=== PATIENT | male | born 1990 | race Caucasian/White ===

== ENCOUNTER 2018-10-05 14:26 | Emergency (ER) | payer BC, SELFPAY ==
[2018-10-05 14:28] VITALS: BP 149/93; PULSE 79; RESP 14; TEMP 36.6; O2SAT 98; BMI 20.2
--- NOTE | 2018-10-05 14:58 | ED.ABDPAIN ---
HPI - Abdominal Pain <Krupa Blankenship PA-C - Last Filed: 10/05/18 20:04> General Chief Complaint: Abdominal Pain Stated Complaint: Rt lower abd pain Time Seen by Provider: 10/05/18 14:43 Source: patient Mode of arrival: ambulatory Limitations: no limitations History of Present Illness HPI narrative: This 28-year-old male comes to ED secondary to recurrent right side pain. He indicates this is in the side just above the hip. He states that he had similar pain to this a month ago, stopped on its own within a week after he stopped alcohol. He also notes that prior to the initial episode of pain, he had taken an herbal supplement, kava, at a fairly high dose which he discontinued. He was seen at another local walk-in clinic or urgent care and was told he had some elevated liver function tests, no other acute findings. He states that pain started again yesterday while he was working (does not have a physical job). He travels for work but denies any trauma, lifting luggage, etc. He states that he continued working and pain seem better in the afternoon, did keep him up last night for some time but he does not think pain had gotten acutely worse. He states he thinks that maybe pain is worse after drinking alcohol, no other exacerbating or alleviating features such as food or motion. He states he has not had any nausea or vomiting associated with pain and has been eating normally. He has been having normal regular bowel movements though he did try magnesium citrate yesterday in case of constipation causing this, states it caused diarrhea but no change in his pain. He has not had any fever, chills, sweats. He has not had any urinary symptoms such as hematuria, dysuria or frequency. He denies any chest pain, dyspnea, or magda abdominal pain. He denies any pain in his extremities or swelling. In general he has been going about his usual activities including running, but has not done this in the last few days secondary to travel. He states pain is not acutely changed today but he was concerned and PCP sent him here in case of possible appendicitis. Related Data Allergies Allergy/AdvReac Type Severity Reaction Status Date / Time No Known Drug Allergies Allergy Verified 10/05/18 14:32 Review of Systems <Krupa Blankenship PA-C - Last Filed: 10/05/18 20:04> Review of Systems ROS Unobtainable: All systems reviewed & are unremarkable except as noted in HPI and below PFSH <Krupa Blankenship PA-C - Last Filed: 10/05/18 20:04> Medical History (Updated 10/05/18 @ 16:41 by Krupa Blankenship PA-C) Healthy adult male (Chronic) Surgical History (Updated 10/05/18 @ 15:38 by Krupa Blankenship PA-C) Status post surgical removal of ganglion cyst (Resolved) Social History (Updated 10/05/18 @ 15:38 by Krupa Blankenship PA-C) Smoking Status: Former smoker Social History (Updated 10/05/18 @ 15:38 by Krupa Blankenship PA-C) Smoking Status: Former smoker Comment: ETOH 0-6 per day Exam <Krupa Blankenship PA-C - Last Filed: 10/05/18 20:04> Narrative Exam Narrative: GENERAL APPEARANCE: Patient sitting comfortably, in no distress. HEENT: PERRL, EOMI, no scleral icterus NECK: Supple LUNGS: Clear to auscultation bilaterally. HEART: Rate and rhythm regular, normal S1 and S2, no S3 or S4. ABDOMEN: Soft, nondistended, bowel sounds present x 4 quadrants, no masses palpable. Very minimal tenderness at the right mid and lateral hepatic border. Liver border is palpable approximately 2 cm be on costal margin, no splenomegaly. No CVAT EXTREMITIES: No edema DERMATOLOGIC: No jaundice or exanthem NEUROLOGIC: Alert and oriented with normal speech and coordination Initial Vital Signs Initial Vital Signs: Vital Signs Temperature 97.8 F 10/05/18 14:28 Pulse Rate 79 10/05/18 14:28 Respiratory Rate 14 10/05/18 14:28 Blood Pressure 149/93 H 10/05/18 14:28 Pulse Oximetry 98 10/05/18 14:28 <Erin Mccoy MD - Last Filed: 10/05/18 20:11> Initial Vital Signs Initial Vital Signs: Vital Signs Temperature 97.8 F 10/05/18 14:28 Pulse Rate 79 10/05/18 14:28 Respiratory Rate 14 10/05/18 14:28 Blood Pressure 149/93 H 10/05/18 14:28 Pulse Oximetry 98 10/05/18 14:28 Course <Krupa Blankenship PA-C - Last Filed: 10/05/18 20:04> Orders Ordered: ED Orders 10/05/18 15:34 Complete Blood Count AUTO DIFF Stat Comprehensive Metabolic Panel Stat Gamma Glutamyl Transpeptidase Stat Lipase Stat Vital Signs - 8 hr 10/05/18 14:28 10/05/18 16:46 Temperature 97.8 F Pulse Rate 79 52 L Respiratory Rate 14 16 Blood Pressure 149/93 H 128/84 Pulse Oximetry 98 97 <Erin Mccoy MD - Last Filed: 10/05/18 20:11> Orders Ordered: ED Orders 10/05/18 15:34 Complete Blood Count AUTO DIFF Stat Comprehensive Metabolic Panel Stat Gamma Glutamyl Transpeptidase Stat Lipase Stat Vital Signs - 8 hr 10/05/18 14:28 10/05/18 16:46 Temperature 97.8 F Pulse Rate 79 52 L Respiratory Rate 14 16 Blood Pressure 149/93 H 128/84 Pulse Oximetry 98 97 MDM - Abdominal Pain <Krupa Blankenship PA-C - Last Filed: 10/05/18 20:04> Lab Data Attestation: I reviewed the patient's lab results. Result diagrams: 10/05/18 15:34 10/05/18 15:34 Lab Results 10/05/18 10/05/18 10/05/18 Range/Units 15:34 15:34 15:34 WBC 6.6 (4.5-11.0) X10^3/uL RBC 4.44 L (4.5-5.9) X10^6/uL Hgb 15.2 (13.5-17.5) g/dL Hct 44.2 (41-53) % MCV 99.7 (80-100) fL MCH 34.3 H (26-34) PG MCHC 34.5 (30-36) % RDW 12.2 (11.6-14.8) % Plt Count 231 (150-400) X10^3/uL Neut % (Auto) 68.7 (50-75) % Lymph % (Auto) 20.0 L (25-40) % Dolores % (Auto) 9.5 (3-14) % Eos % (Auto) 1.3 L (2-4) % Baso % (Auto) 0.5 (0-2) % Neut # (Auto) 4500 (5887-6705) /uL Lymph # (Auto) 1300 (7304-3750) /uL Dolores # (Auto) 600 (0-900) /uL Eos # (Auto) 100 (0-450) /uL Baso # (Auto) 0 (0-100) /uL Sodium 138 (137-145) mmol/L Potassium 4.2 (3.4-5.1) mmol/L Chloride 102 (98-107) mmol/L Carbon Dioxide 27 (22-32) mmol/L BUN 13 (9-20) mg/dL Creatinine 0.80 (0.66-1.25) mg/dL Estimated GFR > 60.0 (>60) mL/min BUN/Creatinine Ratio 16.3 (6-22) Glucose 86 (70-100) mg/dL Calcium 9.7 (8.4-10.2) mg/dL Total Bilirubin 1.2 (0.2-1.3) mg/dL GGT 63 (15-73) U/L AST 32 (17-59) IU/L ALT 27 (21-72) IU/L Alkaline Phosphatase 81 (38-126) U/L Total Protein 7.8 (6.3-8.2) g/dL Albumin 4.8 (3.5-5.0) g/dL Globulin 3.0 (1.7-4.1) g/dL Albumin/Globulin Ratio 1.6 (1.0-2.8) Lipase 75 (23-300) U/L Point of care testing: Urine Dip Bedside Urine Glucose Negative Bedside Urine Bilirubin - Negative Bedside Urine Ketone - Negative Urine Specific [place] 1.015 Bedside Urine Occult Blood - Negative Bedside Urine pH 8.0 Bedside Urine Protein - Negative Bedside Urine Urobilinogen - Negative Bedside Urine Nitrite - Negative Bedside Urine Leukocytes - Negative Esterase <Erin Mccoy MD - Last Filed: 10/05/18 20:11> Lab Data Lab Results 10/05/18 10/05/18 10/05/18 Range/Units 15:34 15:34 15:34 WBC 6.6 (4.5-11.0) X10^3/uL RBC 4.44 L (4.5-5.9) X10^6/uL Hgb 15.2 (13.5-17.5) g/dL Hct 44.2 (41-53) % MCV 99.7 (80-100) fL MCH 34.3 H (26-34) PG MCHC 34.5 (30-36) % RDW 12.2 (11.6-14.8) % Plt Count 231 (150-400) X10^3/uL Neut % (Auto) 68.7 (50-75) % Lymph % (Auto) 20.0 L (25-40) % Dolores % (Auto) 9.5 (3-14) % Eos % (Auto) 1.3 L (2-4) % Baso % (Auto) 0.5 (0-2) % Neut # (Auto) 4500 (1988-2796) /uL Lymph # (Auto) 1300 (2965-6888) /uL Dolores # (Auto) 600 (0-900) /uL Eos # (Auto) 100 (0-450) /uL Baso # (Auto) 0 (0-100) /uL Sodium 138 (137-145) mmol/L Potassium 4.2 (3.4-5.1) mmol/L Chloride 102 (98-107) mmol/L Carbon Dioxide 27 (22-32) mmol/L BUN 13 (9-20) mg/dL Creatinine 0.80 (0.66-1.25) mg/dL Estimated GFR > 60.0 (>60) mL/min BUN/Creatinine Ratio 16.3 (6-22) Glucose 86 (70-100) mg/dL Calcium 9.7 (8.4-10.2) mg/dL Total Bilirubin 1.2 (0.2-1.3) mg/dL GGT 63 (15-73) U/L AST 32 (17-59) IU/L ALT 27 (21-72) IU/L Alkaline Phosphatase 81 (38-126) U/L Total Protein 7.8 (6.3-8.2) g/dL Albumin 4.8 (3.5-5.0) g/dL Globulin 3.0 (1.7-4.1) g/dL Albumin/Globulin Ratio 1.6 (1.0-2.8) Lipase 75 (23-300) U/L Point of care testing: Urine Dip Bedside Urine Glucose Negative Bedside Urine Bilirubin - Negative Bedside Urine Ketone - Negative Urine Specific [place] 1.015 Bedside Urine Occult Blood - Negative Bedside Urine pH 8.0 Bedside Urine Protein - Negative Bedside Urine Urobilinogen - Negative Bedside Urine Nitrite - Negative Bedside Urine Leukocytes - Negative Esterase Discharge Plan Departure Patient Disposition: Home Clinical Impression: Chronic right flank pain Discharge Date/Time: 10/05/18 16:51 Interventions: ED Discharge Assessment Last Done: 10/05/18 16:46 Instructions: DI for Abdominal Pain-Adult Activity Restrictions/Additional Instructions: There was not any acute problem found on your lab work today, and the source of your pain is not clear on exam. Your liver function tests were normal today, and that could be related to reducing your alcohol intake as you mention. This could be something musculoskeletal, however it may be helpful to do further testing as well such as an ultrasound. Please completely abstain from alcohol to see if that is helpful since you think there might be a correlation. Please start an [id number] anti-inflammatory pain medicines such as Aleve, 2 tablets every 12 hours, or ibuprofen (Motrin), 3-4 [id number]-[id number] tablets every 8 hours, both of which are equivalent to prescription dosing. You can add Tylenol in between as needed. Please be consistent with the medicine for a few days to see if it is helpful, and call your PCP to make a follow-up appointment. Please return here as we talked about if you have any acutely worsening pain or new symptoms such as vomiting or fever. Referrals: Ada Irvin DO [Non-Staff] -
[2018-10-05 15:42] LABS: Add Manual Diff / Slide Review NO; Basophils Absolute Auto 0 /uL (0-100); Basophils Percent Auto 0.5 % (0-2); Eosinophils Absolute Auto 100 /uL (0-450); Eosinophils Percent Auto 1.3 % (2-4); Hematocrit 44.2 % (41-53); Hemoglobin 15.2 g/dL (13.5-17.5); Lymphocytes Absolute Auto 1300 /uL (1100-4500); Mean Corpuscular HGB Conc 34.5 % (30-36); Mean Corpuscular Hemoglobin 34.3 PG (26-34); Mean Corpuscular Volume 99.7 fL (80-100); Monocytes Absolute Auto 600 /uL (0-900); Monocytes Percent Auto 9.5 % (3-14); Neutrophils Absolute Auto 4500 /uL (1500-7000); Neutrophils Percent Auto 68.7 % (50-75); Platelet Count 231 X10^3/uL (150-400); Red Blood Cell Count 4.44 X10^6/uL (4.5-5.9); Red Cell Distribution Width 12.2 % (11.6-14.8); White Blood Cell Count 6.6 X10^3/uL (4.5-11.0)
[2018-10-05 15:51] LABS: Alanine Aminotransferase 27 IU/L (21-72); Albumin 4.8 g/dL (3.5-5.0); Albumin Globulin Ratio 1.6 (1.0-2.8); Alkaline Phosphatase 81 U/L (38-126); Aspartate Aminotransferase 32 IU/L (17-59); BUN Creatinine Ratio 16.3 (6-22); Bilirubin Total 1.2 mg/dL (0.2-1.3); Blood Urea Nitrogen 13 mg/dL (9-20); Calcium 9.7 mg/dL (8.4-10.2); Carbon Dioxide 27 mmol/L (22-32); Chloride 102 mmol/L (98-107); Estimated Glomerular Filt Rate > 60.0 mL/min (>60); Glucose 86 mg/dL (70-100); HEMOLYSIS < 15 (0-50); Lipase 75 U/L (23-300); Potassium 4.2 mmol/L (3.4-5.1); Sodium 138 mmol/L (137-145); Total Protein 7.8 g/dL (6.3-8.2)
[2018-10-05 16:13] LABS: Gamma Glutamyl Transpeptidase 63 U/L (15-73)
[2018-10-05 16:46] VITALS: BP 128/84; PULSE 52; RESP 16; O2SAT 97
== END 2018-10-05 16:51 | disposition home or self-care (01) ==
PROVIDERS: Emergency Provider Internal Medicine
DX: R10.9 Unspecified abdominal pain (principal)
CPT/HCPCS: 36415; 80053; 81003; 82977; 83690; 85025; 99282; 99283

== ENCOUNTER 2018-10-31 15:41 | Emergency (ER) | payer BC, SELFPAY ==
[2018-10-31 15:43] VITALS: BP 140/90; PULSE 86; RESP 144; TEMP 36.9; O2SAT 100
--- NOTE | 2018-10-31 16:52 | DI.US.S_ITS ---
PROCEDURE: US SCROTUM INDICATIONS: TESTICULAR PAIN TECHNIQUE: Real-time scanning was performed of the scrotum and testicles, with image documentation. Color and pulse Doppler interrogation was performed of both testicles. COMPARISON: None. FINDINGS: Right: Testicle is normal in size at 4.7 x 2.3 x 3.3 cm, and homogenous in echotexture. Epididymis is normal in overall size and morphology. No hydrocele or varicoceles. Overlying scrotal skin is normal in thickness. Mild increased vascularity. Left: Testicle is normal in size at 4.5 x 1.9 x 3.3 cm, and homogeneous in echotexture. Epididymis is normal in overall size and morphology. No hydrocele. Mild varicocele. Overlying scrotal skin is normal in thickness. Mild increased vascularity. Doppler: Color and pulse Doppler demonstrate normal and symmetric arterial flow in both testicles. IMPRESSION: Mild increased vascularity bilaterally. Mild left varicocele. Dictated by: Valeria Rebolledo M.D. on 10/31/2018 at 18:40 Approved by: Valeria Rebolledo M.D. on 10/31/2018 at 18:44
[2018-10-31 19:14] VITALS: BP 147/79; PULSE 71; RESP 20; O2SAT 100
[2018-10-31 19:15] LABS: Urine Chlamydia NOT DETECTED; Urine N gonorrhoeae NOT DETECTED
[2018-10-31] MEDS: KETOROLAC 60 MG/2 ML VIAL IM (20:06)
--- NOTE | 2018-10-31 20:14 | ED.MALEGU ---
HPI - Male Genitourinary <FAINA Gonzalez-BC - Last Filed: 10/31/18 20:56> General Chief complaint: Urogenital-Male Stated complaint: groin pain Time Seen by Provider: 10/31/18 16:52 Source: patient Mode of arrival: ambulatory Limitations: no limitations History of Present Illness HPI Narrative: The patient is a 28-year-old former smoker male who denies any medical history with a chief complaint of groin pain x4 days. He states both of his testicles hurt, low-grade all the time. He denies any rectal pain or pressure. He denies any pain sitting down. He denies any alleviating or worsening factors. He denies any dysuria urgency or frequency. Denies any palpable masses. Denies any testicular swelling. He denies any drainage. He states that the pain does not radiate anywhere. Of note he states he had a normal abdomen pelvis CT at an outside facility on the 7th of this month. This was done at [facility]. He has not followed up with primary care provider for this. He is slightly concerned about gonorrhea and chlamydia. He denies any fevers nausea vomiting diarrhea or abdominal pain. Related Data Previous Rx's Medication Instructions Recorded ketorolac 10 mg PO TID PRN #14 tab 10/31/18 Allergies Allergy/AdvReac Type Severity Reaction Status Date / Time No Known Drug Allergies Allergy Verified 10/05/18 14:32 Review of Systems <FAINA Gonzalez-BC - Last Filed: 10/31/18 20:56> Review of Systems GENERAL: Denies chills, fatigue, malaise, fever, sweats. HEENT: Denies sinus pain, ear pain, sore throat, difficulty swallowing, dizziness. RESPIRATORY: Denies dyspnea, cough, wheezing, hemoptysis, sputum. CARDIOVASCULAR: Denies chest pain, palpitations, orthopnea, edema, GASTROINTESTINAL: Denies nausea, vomiting, abdominal pain, diarrhea, constipation, melena. : See HPI MUSCULOSKELETAL: denies weakness, joint pain, or bony pain SKIN: Denies rash, skin lesions, or other NEUROLOGIC: Denies weakness, headache, numbness, change in speech, confusion, seizures, incoordination. PSYCHIATRIC: No concerning psychosocial issues. 12 point review of systems is negative except for those stated above PFSH <SVEN Gonzalez - Last Filed: 10/31/18 20:56> Medical History Healthy adult male (Chronic) Surgical History (Updated 10/05/18 @ 15:38 by Krupa Blankenship PA-C) Status post surgical removal of ganglion cyst (Resolved) Social History Smoking Status: Former smoker Social History Smoking Status: Former smoker Exam <SVEN Gonzalez - Last Filed: 10/31/18 20:56> Narrative Exam Narrative: GENERAL: This is a well-nourished, well-developed patient, in no acute distress HEAD: Atraumatic. Normocephalic. No temporal or scalp tenderness. EYES: Pupils equal round and reactive. Extraocular motions intact. No scleral icterus. No injection or drainage. ENT: Nose without bleeding, purulent drainage or septal hematoma. Throat without erythema, tonsillar hypertrophy or exudate. Uvula midline. Airway patent. NECK: Trachea midline. No JVD or lymphadenopathy. Supple, nontender, no meningeal signs. CARDIOVASCULAR: Regular rate and rhythm without murmurs, gallops, or rubs. RESPIRATORY: Clear to auscultation. Breath sounds equal bilaterally. No wheezes, rales, or rhonchi. GASTROINTESTINAL: Abdomen soft, non-tender, nondistended. No hepato-splenomegaly, or palpable masses. No guarding. EXTREMITIES: No clubbing, cyanosis, or edema. No joint tenderness, effusion, or edema noted. BACK: Nontender without deformity or crepitance. No flank tenderness. NEURO: AOx3. SKIN: No rash or erythema. : Cremasteric reflex intact bilaterally. No penile lesions or discharge noted. No palpable hernias. Exam performed with Alonzo Rn as soc analyst negative phrens side Initial Vital Signs Initial Vital Signs: Vital Signs Temperature 98.5 F 10/31/18 15:43 Pulse Rate 86 10/31/18 15:43 Respiratory Rate 144 H 10/31/18 15:43 Blood Pressure 140/90 10/31/18 15:43 Pulse Oximetry 100 07/01/19 15:43 <DO Selin Aguilar Last Filed: 10/31/18 22:32> Initial Vital Signs Initial Vital Signs: Vital Signs Temperature 98.5 F 10/31/18 15:43 Pulse Rate 86 10/31/18 15:43 Respiratory Rate 144 H 10/31/18 15:43 Blood Pressure 140/90 10/31/18 15:43 Pulse Oximetry 100 10/31/18 15:43 Course <SVEN Gonzalez - Last Filed: 10/31/18 20:56> Orders Ordered: ED Orders 10/31/18 16:52 US scrotum Stat 10/31/18 17:25 Urine Chlamydia Gonorrhea PCR Stat Discontinued Medications Ketorolac Tromethamine (Toradol) 60 mg IM NOW ONE Stop: 10/31/18 19:56 Last Admin: 10/31/18 20:06 Dose: 60 mg Vital Signs - 8 hr 10/31/18 15:43 10/31/18 19:14 10/31/18 20:32 Temperature 98.5 F Pulse Rate 86 71 60 Respiratory Rate 144 H 20 18 Blood Pressure 140/90 119/82 Blood Pressure [Left Arm] 147/79 H Pulse Oximetry 100 100 100 <DO Selin Aguilar Last Filed: 10/31/18 22:32> Orders Ordered: ED Orders 10/31/18 16:52 US scrotum Stat 10/31/18 17:25 Urine Chlamydia Gonorrhea PCR Stat Discontinued Medications Ketorolac Tromethamine (Toradol) 60 mg IM NOW ONE Stop: 10/31/18 19:56 Last Admin: 10/31/18 20:06 Dose: 60 mg Vital Signs - 8 hr 10/31/18 15:43 10/31/18 19:14 10/31/18 20:32 Temperature 98.5 F Pulse Rate 86 71 60 Respiratory Rate 144 H 20 18 Blood Pressure 140/90 119/82 Blood Pressure [Left Arm] 147/79 H Pulse Oximetry 100 100 100 MDM - Male Genitourinary <SVEN Gonzalez - Last Filed: 10/31/18 20:56> Lab Data Lab Results 10/31/18 Range/Units 17:25 Ur Chlamydia DNA (PCR) Not detected N gonorrhoeae DNA (PCR) Not detected Urine Dip Bedside Urine Glucose Negative Bedside Urine Bilirubin - Negative Bedside Urine Ketone ++ 40 Urine Specific [place] 1.015 Bedside Urine Occult Blood - Negative Bedside Urine pH 8.0 Bedside Urine Protein - Negative Bedside Urine Urobilinogen +/- 1mg Bedside Urine Nitrite - Negative Bedside Urine Leukocytes - Negative Esterase Imaging Data Scrotal ultrasound: Radiologist's impression: [address] [address] Ultrasound Report Signed Patient: Flakito Bruno EMR#: [id number] : 1990Acct:[id number] Age/Sex: 28 / MDate of Service: 10/31/18 Loc: ED Accession Number: [id number] Procedure: US scrotum Ordering Provider: Yuli Jesus PROCEDURE: US SCROTUM INDICATIONS: TESTICULAR PAIN TECHNIQUE: Real-time scanning was performed of the scrotum and testicles, with image documentation. Color and pulse Doppler interrogation was performed of both testicles. COMPARISON: None. FINDINGS: Right: Testicle is normal in size at 4.7 x 2.3 x 3.3 cm, and homogenous in echotexture. Epididymis is normal in overall size and morphology. No hydrocele or varicoceles. Overlying scrotal skin is normal in thickness. Mild increased vascularity. Left: Testicle is normal in size at 4.5 x 1.9 x 3.3 cm, and homogeneous in echotexture. Epididymis is normal in overall size and morphology. No hydrocele. Mild varicocele. Overlying scrotal skin is normal in thickness. Mild increased vascularity. Doppler: Color and pulse Doppler demonstrate normal and symmetric arterial flow in both testicles. IMPRESSION: Mild increased vascularity bilaterally. Mild left varicocele. Dictated by: Valeria Rebolledo M.D. on 10/31/2018 at 18:40 Approved by: Valeria Rebolledo M.D. on 10/31/2018 at 18:4 MDM Narrative Medical decision making narrative: The patient is a 28-year-old male who presents with testicular pain. He has no red flags on exam, bilateral cremasteric reflexes. His ultrasound shows no acute findings other than slightly increased vascularity. We discussed at length trialing anti-inflammatories. He has no evidence of gonorrhea chlamydia urinary tract infection on exam. He does not have any symptoms of prostatitis as he denies any rectal pain or pressure and has a clean urinalysis. I discussed at length follow up with PCP in the next few days. Encourage pushing fluids and resting. Discussed coming back to the ER for any acute findings such as severe worsening testicular pain etc. Patient has no questions or concerns upon discharge. <Govind Hannah DO - Last Filed: 10/31/18 22:32> Lab Data Lab Results 10/31/18 Range/Units 17:25 Ur Chlamydia DNA (PCR) Not detected N gonorrhoeae DNA (PCR) Not detected Urine Dip Bedside Urine Glucose Negative Bedside Urine Bilirubin - Negative Bedside Urine Ketone ++ 40 Urine Specific [place] 1.015 Bedside Urine Occult Blood - Negative Bedside Urine pH 8.0 Bedside Urine Protein - Negative Bedside Urine Urobilinogen +/- 1mg Bedside Urine Nitrite - Negative Bedside Urine Leukocytes - Negative Esterase Discharge Plan Departure Patient Disposition: Home Clinical Impression: Pain in scrotum or testicle Discharge Date/Time: 10/31/18 20:40 Interventions: ED Discharge Assessment Last Done: 10/31/18 20:32 Instructions: DI for Varicocele, Chronic Pelvic Pain-Male Activity Restrictions/Additional Instructions: Your ultrasound had no acute findings but you do have a varicocele in your left testicle. I have given you a prescription of Toradol. Do not combine this with any other NSAIDs such as ibuprofen, Aleve etc. Please follow up with primary care provider. Please come back to the emergency department for any acute concerns. Prescriptions: New ketorolac 10 mg tablet 10 mg PO TID PRN (Reason: pain) Qty: 14 RF: 0 Referrals: Ada Irvin DO [Non-Staff] - <Govind Hannah DO - Last Filed: 10/31/18 22:32> Cosign ED Attending Scotty Attestation: I was available for consultation during this patient's emergency department encounter
[2018-10-31 20:32] VITALS: BP 119/82; PULSE 60; RESP 18; O2SAT 100
--- NOTE | 2018-10-31 20:56 | ED_ITS ---
HPI - Male Genitourinary <FAINA Gonzalez-BC - Last Filed: 10/31/18 20:56> General Chief complaint: Urogenital-Male Stated complaint: groin pain Time Seen by Provider: 10/31/18 16:52 Source: patient Mode of arrival: ambulatory Limitations: no limitations History of Present Illness HPI Narrative: The patient is a 28-year-old former smoker male who denies any medical history with a chief complaint of groin pain x4 days. He states both of his testicles hurt, low-grade all the time. He denies any rectal pain or pressure. He denies any pain sitting down. He denies any alleviating or worsening factors. He denies any dysuria urgency or frequency. Denies any palpable masses. Denies any testicular swelling. He denies any drainage. He states that the pain does not radiate anywhere. Of note he states he had a normal abdomen pelvis CT at an outside facility on the 7th of this month. This was done at [facility]. He has not followed up with primary care provider for this. He is slightly concerned about gonorrhea and chlamydia. He denies any fevers nausea vomiting diarrhea or abdominal pain. Related Data Previous Rx's Medication Instructions Recorded ketorolac 10 mg PO TID PRN #14 tab 10/31/18 Allergies Allergy/AdvReac Type Severity Reaction Status Date / Time No Known Drug Allergies Allergy Verified 10/05/18 14:32 Review of Systems <FAINA Gonzalez-BC - Last Filed: 10/31/18 20:56> Review of Systems GENERAL: Denies chills, fatigue, malaise, fever, sweats. HEENT: Denies sinus pain, ear pain, sore throat, difficulty swallowing, dizziness. RESPIRATORY: Denies dyspnea, cough, wheezing, hemoptysis, sputum. CARDIOVASCULAR: Denies chest pain, palpitations, orthopnea, edema, GASTROINTESTINAL: Denies nausea, vomiting, abdominal pain, diarrhea, constipation, melena. : See HPI MUSCULOSKELETAL: denies weakness, joint pain, or bony pain SKIN: Denies rash, skin lesions, or other NEUROLOGIC: Denies weakness, headache, numbness, change in speech, confusion, seizures, incoordination. PSYCHIATRIC: No concerning psychosocial issues. 12 point review of systems is negative except for those stated above PFSH <SVEN Gonzalez - Last Filed: 10/31/18 20:56> Medical History Healthy adult male (Chronic) Surgical History (Updated 10/05/18 @ 15:38 by Krupa Blankenship PA-C) Status post surgical removal of ganglion cyst (Resolved) Social History Smoking Status: Former smoker Social History Smoking Status: Former smoker Exam <SVEN Gonzalez - Last Filed: 10/31/18 20:56> Narrative Exam Narrative: GENERAL: This is a well-nourished, well-developed patient, in no acute distress HEAD: Atraumatic. Normocephalic. No temporal or scalp tenderness. EYES: Pupils equal round and reactive. Extraocular motions intact. No scleral icterus. No injection or drainage. ENT: Nose without bleeding, purulent drainage or septal hematoma. Throat without erythema, tonsillar hypertrophy or exudate. Uvula midline. Airway patent. NECK: Trachea midline. No JVD or lymphadenopathy. Supple, nontender, no meni ngeal signs. CARDIOVASCULAR: Regular rate and rhythm without murmurs, gallops, or rubs. RESPIRATORY: Clear to auscultation. Breath sounds equal bilaterally. No wheezes, rales, or rhonchi. GASTROINTESTINAL: Abdomen soft, non-tender, nondistended. No hepato- splenomegaly, or palpable masses. No guarding. EXTREMITIES: No clubbing, cyanosis, or edema. No joint tenderness, effusion, or edema noted. BACK: Nontender without deformity or crepitance. No flank tenderness. NEURO: AOx3. SKIN: No rash or erythema. : Cremasteric reflex intact bilaterally. No penile lesions or discharge noted. No palpable hernias. 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 negative phrens side Initial Vital Signs Initial Vital Signs: Vital Signs Temperature 98.5 F 10/31/18 15:43 Pulse Rate 86 10/31/18 15:43 Respiratory Rate 144 H 10/31/18 15:43 Blood Pressure 140/90 10/31/18 15:43 Pulse Oximetry 100 10/31/18 15:43 <Govind Hannah DO - Last Filed: 10/31/18 22:32> Initial Vital Signs Initial Vital Signs: Vital Signs Temperature 98.5 F 10/31/18 15:43 Pulse Rate 86 10/31/18 15:43 Respiratory Rate 144 H 10/31/18 15:43 Blood Pressure 140/90 10/31/18 15:43 Pulse Oximetry 100 10/31/18 15:43 Course <SVEN Gonzalez - Last Filed: 10/31/18 20:56> Orders Ordered: ED Orders 10/31/18 16:52 US scrotum Stat 10/31/18 17:25 Urine Chlamydia Gonorrhea PCR Stat Discontinued Medications Ketorolac Tromethamine (Toradol) 60 mg IM NOW ONE Stop: 10/31/18 19:56 Last Admin: 10/31/18 20:06 Dose: 60 mg Vital Signs - 8 hr 10/31/18 15:43 10/31/18 19:14 10/31/18 20:32 Temperature 98.5 F Pulse Rate 86 71 60 Respiratory Rate 144 H 20 18 Blood Pressure 140/90 119/82 Blood Pressure [Left Arm] 147/79 H Pulse Oximetry 100 100 100 <DO Selin Aguilar Last Filed: 10/31/18 22:32> Orders Ordered: ED Orders 10/31/18 16:52 US scrotum Stat 10/31/18 17:25 Urine Chlamydia Gonorrhea PCR Stat Discontinued Medications Ketorolac Tromethamine (Toradol) 60 mg IM NOW ONE Stop: 10/31/18 19:56 Last Admin: 10/31/18 20:06 Dose: 60 mg Vital Signs - 8 hr 10/31/18 15:43 10/31/18 19:14 10/31/18 20:32 Temperature 98.5 F Pulse Rate 86 71 60 Respiratory Rate 144 H 20 18 Blood Pressure 140/90 119/82 Blood Pressure [Left Arm] 147/79 H Pulse Oximetry 100 100 100 MDM - Male Genitourinary <SVEN Gonzalez - Last Filed: 10/31/18 20:56> Lab Data Lab Results 10/31/18 Range/Units 17:25 Ur Chlamydia DNA (PCR) Not detected N gonorrhoeae DNA (PCR) Not detected Urine Dip Bedside Urine Glucose Negative Bedside Urine Bilirubin - Negative Bedside Urine Ketone ++ 40 Urine Specific Plato 1.015 Bedside Urine Occult Blood - Negative Bedside Urine pH 8.0 Bedside Urine Protein - Negative Bedside Urine Urobilinogen +/- 1mg Bedside Urine Nitrite - Negative Bedside Urine Leukocytes - Negative Esterase Imaging Data Scrotal ultrasound: Radiologist's impression: [address] [address] Ultrasound Report Signed Patient: Flakito Bruno EMR#: [id number] : 1990Acct:[id number] Age/Sex: 28 / MDate of Service: 10/31/18 Loc: ED Accession Number: [id number] Procedure: US scrotum Ordering Provider: Yuli Jesus PROCEDURE: US SCROTUM INDICATIONS: TESTICULAR PAIN TECHNIQUE: Real-time scanning was performed of the scrotum and testicles, with image documentation. Color and pulse Doppler interrogation was performed of both testicles. COMPARISON: None. FINDINGS: Right: Testicle is normal in size at 4.7 x 2.3 x 3.3 cm, and homogenous in echotexture. Epididymis is normal in overall size and morphology. No hydrocele or vari coceles. Overlying scrotal skin is normal in thickness. Mild increased vascularity. Left: Testicle is normal in size at 4.5 x 1.9 x 3.3 cm, and homogeneous in echotexture. Epididymis is normal in overall size and morphology. No hydrocele. Mild varicocele. Overlying scrotal skin is normal in thickness. Mild increased vascularity. Doppler: Color and pulse Doppler demonstrate normal and symmetric arterial flow in both testicles. IMPRESSION: Mild increased vascularity bilaterally. Mild left varicocele. Dictated by: Valeria Rebolledo M.D. on 10/31/2018 at 18:40 Approved by: Valeria Rebolledo M.D. on 10/31/2018 at 18:4 MDM Narrative Medical decision making narrative: The patient is a 28-year-old male who presents with testicular pain. He has no red flags on exam, bilateral cremasteric reflexes. His ultrasound shows no acute findings other than slightly increased vascularity. We discussed at length trialing anti- inflammatories. He has no evidence of gonorrhea chlamydia urinary tract infection on exam. He does not have any symptoms of prostatitis as he denies any rectal pain or pressure and has a clean urinalysis. I discussed at length follow up with PCP in the next few days. Encourage pushing fluids and resting. Discussed coming back to the ER for any acute findings such as severe worsening testicular pain etc. Patient has no questions or concerns upon discharge. <oGvind Hannah DO - Last Filed: 10/31/18 22:32> Lab Data Lab Results 10/31/18 Range/Units 17:25 Ur Chlamydia DNA (PCR) Not detected N gonorrhoeae DNA (PCR) Not detected Urine Dip Bedside Urine Glucose Negative Bedside Urine Bilirubin - Negative Bedside Urine Ketone ++ 40 Urine Specific Plato 1.015 Bedside Urine Occult Blood - Negative Bedside Urine pH 8.0 Bedside Urine Protein - Negative Bedside Urine Urobilinogen +/- 1mg Bedside Urine Nitrite - Negative Bedside Urine Leukocytes - Negative Esterase Discharge Plan Departure Patient Disposition: Home Clinical Impression: Pain in scrotum or testicle Discharge Date/Time: 10/31/18 20:40 Interventions: ED Discharge Assessment Last Done: 10/31/18 20:32 Instructions: DI for Varicocele, Chronic Pelvic Pain-Male Activity Restrictions/Additional Instructions: Your ultrasound had no acute findings but you do have a varicocele in your left testicle. I have given you a prescription of Toradol. Do not combine this with any other NSAIDs such as ibuprofen, Aleve etc. Please follow up with primary care provider. Please come back to the emergency department for any acute concerns. Prescriptions: New ketorolac 10 mg tablet 10 mg PO TID PRN (Reason: pain) Qty: 14 RF: 0 Referrals: Ada Irvin DO [Non-Staff] - <Govind Hannah DO - Last Filed: 10/31/18 22:32> Cosign ED Attending [place] Attestation: I was available for consultation during this patient's emergency department encounter
== END 2018-10-31 20:40 | disposition home or self-care (01) ==
PROVIDERS: Emergency Provider Nurse Practitioner Family
DX: N50.82 Scrotal pain (principal)
CPT/HCPCS: 76870; 81003; 87491; 87591; 96372; 99283; J1885